=== PATIENT | female | born 1955 | race Caucasian/White ===

== ENCOUNTER 2017-12-31 09:00 | Emergency (ER) | payer BC, OTHER ==
[~2017-12-31] VITALS: Ht 162.6 cm; Wt 90.0 kg
[~2017-12-31 09:00] MED LIST: LEVO112T2 PO; PROT40TA PO; ZOCO40TA PO
[2017-12-31 09:04] VITALS: BP 155/81; PULSE 88; RESP 16; TEMP 98.3; O2SAT 95
[2017-12-31] MEDS ORDERED: PANT40TA3 PO (09:10)
[2017-12-31] MEDS ORDERED: LEVO100T5 PO (09:10)
--- NOTE | 2017-12-31 09:34 | PD ---
HPI Chief Complaint: Cold / Flu Symptoms Time Seen by Provider: 09:20 Travel History International Travel<30 days: No Contact w/Intl Traveler<30days: No Traveled to known affect area: No History of Present Illness HPI This is a 62-year-old female here with reported productive cough 5 days. She reports associating nasal congestion and sore throat. She reports the cough is producing colored phlegm. Subjective fevers. Symptom severity is moderate. No aggravating or alleviating factors. PFSH Past Medical History High Cholesterol: Yes GERD: Yes Thyroid Disease: Yes Influenza Vaccination: Yes ?: Not Past Surgical History Gynecologic Surgery: Yes (BENIGN BREAST BIOPSY) Social History Alcohol Use: No Tobacco Use: No Substance Use: No Allergies-Medications (Allergen,Severity, Reaction): Coded Allergies: No Known Allergies (Unverified Adverse Reaction, Unknown, 12/31/17) Reported Meds & Prescriptions Reported Meds & Active Scripts Active Reported Levothyroxine (Levothyroxine Sodium) 100 Mcg Tab 100 Mcg PO DAILY Pantoprazole (Pantoprazole Sodium) 40 Mg Tab 40 Mg PO DAILY Review of Systems Except as stated in HPI: all other systems reviewed are Neg General / Constitutional: Positive: Fever Eyes: No: Visual changes HENT: No: Headaches Cardiovascular: No: Chest Pain or Discomfort Respiratory: Positive: Cough Gastrointestinal: No: Abdominal Pain Genitourinary: No: Dysuria Physical Exam Narrative GENERAL: Alert and well-appearing 62-year-old female. SKIN: Warm and dry. No rash HEAD: Normocephalic. EYES: No injection or drainage. Ear/nose/throat: No TM erythema. Clear nasal discharge. Mild pharyngeal erythema without tonsillar hypertrophy or exudate. NECK: Supple. No meningismus CARDIOVASCULAR: Regular rate and rhythm RESPIRATORY: Breath sounds equal bilaterally. No accessory muscle use. Rhonchorous cough GASTROINTESTINAL: Abdomen soft, non-tender, nondistended. MUSCULOSKELETAL: No cyanosis, or edema. BACK: No CVA tenderness. Data Data Last Documented VS Vital Signs Date Time Temp Pulse Resp B/P (MAP) Pulse Ox O2 Delivery O2 Flow Rate FiO2 12/31/17 09:04 98.3 88 16 155/81 (105) 95 Orders MDM Medical Decision Making Medical Screen Exam Complete: Yes Emergency Medical Condition: Yes Differential Diagnosis Bronchitis, pneumonia, influenza, viral URI Narrative Course 62-year-old female here with reported productive cough with colored phlegm. She is well-appearing. She does have a mildly rhonchorous cough on exam. She' ll be treated with azithromycin and Tessalon Perles. Diagnosis Primary Impression: Bronchitis Referrals: Primary Care Physician Additional Instructions: Antibiotics as prescribed Follow-up with your primary doctor. Return if he developed new or worsening symptoms. Rest and stay well hydrated Scripts Benzonatate (Tessalon Perles) 100 Mg Cap 200 MG PO TID Y for COUGH, #14 CAP 0 Refills Prov: Mary Smart 12/31/17 Azithromycin (Azithromycin) 250 Mg Tab 250 MG PO DIRECTED for Infection, #6 TAB 0 Refills Take 2 tabs (500 mg) on day 1 then 1 tab daily x 4 days. Prov: Mary Smart 12/31/17 Disposition: 01 DISCHARGE HOME Condition: Stable Mary Smart Dec 31, 2017 09:34
[2017-12-31] MEDS ORDERED: BENZ100 PO (09:38)
[2017-12-31] MEDS ORDERED: AZIT250T3 PO (09:38)
== END 2017-12-31 09:49 | disposition home or self-care (01) ==
LOC: PHEFT 09:00
DX: J40 Bronchitis, not specified as acute or chronic (principal); E78.00 Pure hypercholesterolemia, unspecified; K21.9 Gastro-esophageal reflux disease without esophagitis
CPT/HCPCS: 99283